=== PATIENT | female | born 1990 | race Caucasian/White ===

== ENCOUNTER 2021-10-16 15:51 | Emergency (ER) | payer MEDICAID ==
[~2021-10-16] VITALS: Ht 157.5 cm; Wt 50.0 kg
[2021-10-16] MEDS ORDERED: LEVETIRACETAM 1000MG PREMIX 100 ML IV ONE (16:30)
[2021-10-16] MEDS ORDERED: SODIUM CHLORIDE 0.9% 1,000 ML IV ONE (16:30)
[2021-10-16] MEDS ORDERED: MIDAZOLAM HCL 2 MG/2 ML VIAL IV ONE (17:00)
[2021-10-16 17:13] LABS: BASOPHILS % 0.6 % (0.0-2.0); HEMATOCRIT. 37.5 % (36.0-48.0); HEMOGLOBIN. 12.6 g/dL (12.0-16.0); LYMPHOCYTES % 11.9 % (20.0-50.0); MEAN CORPUSCULAR HEMOGLOBIN 32.2 pg (28.0-32.0); MEAN PLATELET VOLUME 9.2 fl (7.4-10.4); MONOCYTES % 14.4 % (2.0-8.0); NEUTROPHILS % 73.1 % (40.0-76.0); PLATELET 211 x1000/uL (130-400); RED CELL DISTRIBUTION WIDTH 14.3 % (11.6-14.6)
[2021-10-16 17:23] LABS: CHLORIDE 103 mEq/L (98-107)
[2021-10-16 17:32] LABS: ETHANOL BLOOD < 10 mg/dL
[2021-10-16 18:36] LABS: CLARITY URINE CLOUDY (CLEAR); COLOR URINE DARK YELLOW (YELLOW); KETONES URINE NEGATIVE (NEGATIVE); LEUKOCYTE ESTERASE URINE NEGATIVE (NEGATIVE); NITRITE URINE NEGATIVE (NEGATIVE); OCCULT BLOOD URINE NEGATIVE (NEGATIVE); PH URINE 5.5 (4.5-8.0); PROTEIN URINE 3+ (NEGATIVE); SPECIFIC GRAVITY URINE 1.031 (1.005-1.030)
[2021-10-16 19:51] LABS: *AMPHETAMINES SCREEN URINE NEGATIVE (NEGATIVE); *BARBITURATES SCREEN URINE NEGATIVE (NEGATIVE); *COCAINE SCREEN URINE NEGATIVE (NEGATIVE); METHADONE URINE SCREEN NEGATIVE (NEGATIVE); OPIATES URINE SCREEN NEGATIVE (NEGATIVE); PHENCYCLIDINE URINE SCREEN NEGATIVE (NEGATIVE)
[2021-10-16 20:08] LABS: *BENZODIAZEPINES SCREEN URINE PRESUMTIVE POSITIVE (NEGATIVE); CANNABINOID URINE SCREEN PRESUMTIVE POSITIVE (NEGATIVE)
[2021-10-16 21:04] LABS: HCG SCREEN NEGATIVE
[2021-10-16] MEDS ORDERED: DIVA500T3 MT (21:33)
[2021-10-17 03:56] VITALS: BP 112/67
== END 2021-10-17 04:06 | disposition home or self-care (01) ==
LOC: ER 15:51
DX: G40.909 Epilepsy, unspecified, not intractable, without status epilepticus (principal); I49.3 Ventricular premature depolarization; D72.829 Elevated white blood cell count, unspecified; F12.90 Cannabis use, unspecified, uncomplicated
CPT/HCPCS: 36415; 70450; 80053; 80305; 80320; 81003; 84703; 85025; 93005; 96365; 96375; 99291; J1953; J2250; J7030; G0480

== ENCOUNTER 2024-08-18 14:20 | Inpatient (IN) | payer MEDICARE, MEDICAID ==
[~2024-08-18] VITALS: Ht 162.6 cm; Wt 69.9 kg
[2024-08-18 06:00] VITALS: BP 120/69; PULSE 66; RESP 16; TEMP 36.6; O2SAT 99
[~2024-08-18 14:20] MED LIST: DIVA500T3 MT
[2024-08-18 14:23] VITALS: O2SAT 97
[2024-08-18 15:26] LABS: BASOPHILS % 0.5 % (0.0-2.0); EOSINOPHILS % 0.1 % (0.0-5.0); HEMATOCRIT. 36.9 % (36.0-48.0); HEMOGLOBIN. 12.7 g/dL (12.0-16.0); LYMPHOCYTES % 15.1 % (20.0-50.0); MEAN CORPUSCULAR HEMOGLOBIN 32.8 pg (28.0-32.0); MEAN CORPUSCULAR HGB CONC 34.4 g/dL (31.0-37.0); MEAN CORPUSCULAR VOLUME 95.4 fL (81.0-99.0); MEAN PLATELET VOLUME 8.6 fl (7.4-10.4); NEUTROPHILS % 75.3 % (40.0-76.0); PLATELET 205 x1000/uL (130-400); RED BLOOD CELL COUNT 3.87 mill/uL (4.2-5.4); RED CELL DISTRIBUTION WIDTH 14.6 % (11.6-14.6); WHITE BLOOD COUNT 6.9 x1000/uL (4.5-11.0)
[2024-08-18] MEDS: ACETAMINOPHEN 325MG TABLET PO STA (15:33)
[2024-08-18] MEDS: ONDANSETRON HCL 4MG/2ML INJ IV STA (15:33)
[2024-08-18] MEDS: SODIUM CHLORIDE 0.9% 1,000 ML IV ONE (15:33)
[2024-08-18 15:34] LABS: CARBON DIOXIDE 25 mEq/L (21-32); CHLORIDE 92 mEq/L (98-107); POTASSIUM 3.6 mEq/L (3.5-5.1); SODIUM 124 mEq/L (136-145)
[2024-08-18 15:35] LABS: CALCIUM 8.6 mg/dL (8.7-10.4)
[2024-08-18 15:40] LABS: CREATININE 0.5 mg/dL (0.6-1.0); ETHANOL BLOOD < 10 mg/dL (<10); GLUCOSE 108 mg/dL (70-105); UREA NITROGEN BLOOD < 5 mg/dL (9-23)
[2024-08-18 15:41] LABS: AMMONIA < 17 uMol/L (<32)
[2024-08-18 15:42] LABS: CREATINE KINASE 52 IU/L (34-145)
[2024-08-18 15:49] LABS: PHENOBARBITAL < 3.0 ug/mL (15.0-40.0); PHENYTOIN < 2.0 ug/mL (10-20); TROPONIN I HIGH SENSITIVITY < 4 ng/L (3.0-34)
[2024-08-18 15:52] LABS: CARBAMAZEPINE 15.1 ug/mL (4-12); VALPROIC ACID 128.1 ug/mL (50-100)
[2024-08-18] MEDS ORDERED: CLONIDINE 0.1MG TABLET PO PRN (18:00)
[2024-08-18] MEDS ORDERED: IPRATROPIUM/ALBUTEROL 0.5-3(2.5)MG/3ML NEB NEB PRN (18:00)
[2024-08-18] MEDS ORDERED: ACETAMINOPHEN 325MG TABLET PO PRN (18:00)
[2024-08-18] MEDS ORDERED: DULO60CA64 PO (18:06)
[2024-08-18] MEDS ORDERED: CLOB20TA4 PO (18:06)
[2024-08-18] MEDS ORDERED: CARB300C9 PO (18:06)
[2024-08-18] MEDS ORDERED: TRAZ-251 PO (18:06)
[2024-08-18] MEDS ORDERED: HYDROCODONE/ACETAMINOPHEN 5/325MG TABLET PO PRN (18:11)
[2024-08-18] MEDS: SODIUM CHLORIDE 0.9% 1,000 ML IV SCH (18:29)
[2024-08-18] MEDS: PANTOPRAZOLE SODIUM 40 MG/VIAL IV SCH (18:29)
[2024-08-18] MEDS ORDERED: FOLI-43 MT (18:51)
[2024-08-18 20:00] VITALS: BP 112/75; PULSE 57; RESP 18; TEMP 36.4; O2SAT 100
[2024-08-18] MEDS: TRAZODONE HCL 50MG TABLET PO SCH (21:00)
[2024-08-18] MEDS ORDERED: CARBAMAZEPINE 200MG TABLET PO SCH (21:00)
[2024-08-18] MEDS ORDERED: DIVALPROEX SODIUM 500MG DR TABLET PO SCH (21:00)
[2024-08-19] VITALS: BP 99/54; PULSE 47; RESP 18; TEMP 36.5; O2SAT 97
[2024-08-19 04:00] VITALS: BP 95/55; PULSE 54; RESP 18; TEMP 36.4; O2SAT 99
[2024-08-19 07:22] VITALS: BP 120/69; PULSE 66; RESP 16; TEMP 36.6
[2024-08-19 08:00] VITALS: BP 103/52; PULSE 53; RESP 18; TEMP 36.3; O2SAT 95
[2024-08-19] MEDS: DULOXETINE HCL 60MG DR CAPSULE PO SCH (09:31)
[2024-08-19] MEDS: ENOXAPARIN 40MG/0.4ML SYR SUBCUT SCH (09:32)
[2024-08-19 12:00] VITALS: BP 121/60; PULSE 59; RESP 18; TEMP 36.1; O2SAT 100
[2024-08-19 13:47] LABS: CLARITY URINE CLEAR (CLEAR); COLOR URINE YELLOW (YELLOW); GLUCOSE URINE NEGATIVE (NEGATIVE); KETONES URINE NEGATIVE (NEGATIVE); LEUKOCYTE ESTERASE URINE NEGATIVE (NEGATIVE); NITRITE URINE NEGATIVE (NEGATIVE); OCCULT BLOOD URINE NEGATIVE (NEGATIVE); PROTEIN URINE NEGATIVE (NEGATIVE); SPECIFIC GRAVITY URINE 1.009 (1.005-1.030)
[2024-08-19] MEDS: ONDANSETRON HCL 4MG/2ML INJ IV PRN (13:47)
[2024-08-19 14:01] LABS: SODIUM URINE RANDOM 111 mEq/L
[2024-08-19 14:07] LABS: *AMPHETAMINES SCREEN URINE NEGATIVE (NEGATIVE); *BARBITURATES SCREEN URINE NEGATIVE (NEGATIVE); *BENZODIAZEPINES SCREEN URINE PRESUMPTIVE POSITIVE (NEGATIVE); *COCAINE SCREEN URINE NEGATIVE (NEGATIVE); METHADONE URINE SCREEN NEGATIVE (NEGATIVE); OPIATES URINE SCREEN NEGATIVE (NEGATIVE)
[2024-08-19 14:08] LABS: CANNABINOID URINE SCREEN PRESUMPTIVE POSITIVE (NEGATIVE); ECSTASY MDMA SCREEN URINE NEGATIVE (NEGATIVE); PHENCYCLIDINE URINE SCREEN NEGATIVE (NEGATIVE)
[2024-08-19 14:19] LABS: OSMOLALITY URINE 298 mOsm/kg (500-850)
[2024-08-19 16:00] VITALS: BP 128/67; PULSE 53; RESP 16; TEMP 36.8; O2SAT 98
== END 2024-08-19 17:10 | disposition left against medical advice (07) | DRG 100 ==
LOC: ER 14:20 → EDBEDREQTM 16:25 → EDBEDREQSVC 16:25 → EDBEDREQ 16:25 → ENRESERV 16:45 → 6WST 18:15
PROVIDERS: ADMIT Internal Medicine; ATTEND Internal Medicine
DX: G40.909 Epilepsy, unspecified, not intractable, without status epilepticus (principal); G92.8 Other toxic encephalopathy; E87.1 Hypo-osmolality and hyponatremia; Z88.0 Allergy status to penicillin; Z53.29 Procedure and treatment not carried out because of patient's decision for other reasons
CPT/HCPCS: 36415; 71045; 80048; 80061; 80156; 80165; 80184; 80185; 80305; 80320; 81003; 82140; 82533; 82550; 83605; 83930; 83935; 84295; 84300; 84443; 84484; 85025; 93005; 93970; 97161; 99291; A4606; J1650; J2405; J2470; J7030; G0480